=== PATIENT | female | born 1990 | race Two or more races ===

== ENCOUNTER → 2017-09-11 13:19 | Outpatient (CLI) | payer OTHER, SELFPAY ==
[2017-09-11 14:27] LABS: Thyroid Stim Hormone (TSH) 0.45 uIU/mL (0.358-3.74)
== END ==
PROVIDERS: Family Provider Family Medicine; PCP Family Medicine; Visit Provider Family Medicine
DX: E03.9 Hypothyroidism, unspecified (principal)
CPT/HCPCS: 36415; 84443

== ENCOUNTER → 2018-03-22 10:34 | Outpatient (CLI) | payer OTHER, SELFPAY ==
[2018-03-22 12:36] LABS: T4 Total, Thyroxin 13.7 ug/dL (4.8-13.9); Thyroid Stim Hormone (TSH) 1.51 uIU/mL (0.358-3.74)
== END ==
PROVIDERS: Family Provider Family Medicine; PCP Family Medicine; Visit Provider Family Medicine
DX: E03.9 Hypothyroidism, unspecified (principal)
CPT/HCPCS: 36415; 84436; 84443

== ENCOUNTER → 2018-04-24 09:14 | Outpatient (CLI) | payer OTHER, SELFPAY ==
[2018-04-24 11:00] LABS: Hemoglobin A1c 5.3 % (4.2-6.3)
[2018-04-24 11:03] LABS: Follicle Stimulating Hormone 7.8 mIU/mL; Free T3 2.4 pg/mL (2.18-3.98); Luteinizing Hormone 13.1 mIU/mL; T4 Free Direct 1.15 ng/dL (0.76-1.46)
[2018-04-24 11:20] LABS: Rubella IgG > 500.0 IU/mL
[2018-04-26 02:59] LABS: Rapid Plasmin Reagin (RPR) NONREACTIVE (NONREACTIVE)
[2018-04-28 16:06] LABS: Testosterone, Free 1.72 ng/dL (0.10-0.85); Testosterone, Total 50 ng/dL (8-48)
[2018-04-29 11:22] LABS: Testosterone, % Free 3.43 % (0.50-2.80)
== END ==
PROVIDERS: Visit Provider Obstetrics & Gynecology
DX: N92.1 Excessive and frequent menstruation with irregular cycle (principal)
CPT/HCPCS: 36415; 83001; 83002; 83036; 84146; 84402; 84403; 84439; 84443; 84481; 86592; 86762